=== PATIENT | female | born 1980 | race Caucasian/White ===

== ENCOUNTER 2019-03-17 15:49 | Inpatient (IN) | payer MEDICAID ==
[~2019-03-17] VITALS: Ht 170.2 cm; Wt 93.4 kg
[2019-03-17] MEDS: BLOOD GLUCOSE MONITORING 1 DEV DEV FS SCH ×5 (00:15→23:15)
--- NOTE | 2019-03-17 00:15 | NUR ---
2000 states bs high exceeds 600...retook 10 minutes later 600 exactly 2100 bs 534 2200 bs 473 8490 334 [id number] 310
--- NOTE | 2019-03-17 07:32 | NUR ---
PATIENT IN ROOM 5 GETTING SITUATED IN BED WITH MARTA WHO IS PLACING F/C PATIENT LETHARGIC BUT ALERT. AT BEDSIDE. PATIENT HAS WEDDING RING SILVER IN COLOR ON LEFT RING FINGER. TOOK RING HOME. ROOM AIR. PATIENT PLACED ON INSULIN DRIP BY DAY SHIFT. AT 10U/H. ON NS AT 200ML/HR. INFUSING IN RAC 18 AND HAS LEFT AC 22 LOCKED. LUNGS CLEAR. RESPIRATIONS MILD LABORED AND SYMMET. LUNG SOUNDS CLEAR. BS ACTIVE IN ALL 4 QUAD. F/C PRESENT AND URINE FLOWING. BRUISE ON LEFT KNEE. SKIN INTACT. STATES ON PERIOD X3 DAYS. PERRLA. ABLE TO MAKE NEEDS KNOWN ABLE TO OBEY COMMANDS
[2019-03-17 15:50] VITALS: BP 132/92
--- NOTE | 2019-03-17 16:07 | NUR ---
PT PLACED IN BED 9 BY EMS.
--- NOTE | 2019-03-17 16:10 | NUR ---
BIB EMS FROM HOME C/O SOB FROM HOME WITH N/V X2 DAYS AND ELEVATED BLOOD SUGAR. ACU CHECK [address] ARMSTRONG. HX DM
[2019-03-17] MEDS ORDERED: NACL 0.9% 1,000 ML IV SCH (16:27)
[2019-03-17] MEDS ORDERED: KETOROLAC 30 MG/ML VIAL IVP ONE (16:30)
[2019-03-17] MEDS ORDERED: ONDANSETRON 4 MG/2 ML VIAL IVP ONE (16:30)
--- NOTE | 2019-03-17 17:04 | NUR ---
Dr. Pimentel is evaluating the patient at bedside.
[2019-03-17] MEDS ORDERED: INSU100S5 SUBQ (17:14)
[2019-03-17] MEDS ORDERED: INSU100S45 SUBQ (17:14)
[2019-03-17 18:00] LABS: HEMATOCRIT 48.5 % (36-48); HEMOGLOBIN 14.4 g/dL (12.0-16.0); MEAN CORPUSCULAR HEMOGLOBIN 27 pg (27-31); MEAN CORPUSCULAR HGB CONC 30 g/dL (33-37); MEAN CORPUSCULAR VOLUME 89.5 fL (80-94); PLATELET COUNT (AUTO) 439 K/uL (140-450); RED BLOOD CELL COUNT(AUTO) 5.42 MIL/uL (4.20-5.40); RED CELL DISTRIBUTION WIDTH 16.3 % (11.6-13.7); WHITE BLOOD COUNT (AUTO) 24.2 K/uL (4.8-10.8)
[2019-03-17] MEDS ORDERED: HYDROcodone/APAP 7.5/325 MG 1 TAB PO PRN (18:10)
[2019-03-17] MEDS ORDERED: ACETAMINOPHEN 325 MG TAB PO PRN (18:10)
[2019-03-17] MEDS ORDERED: BLOOD GLUCOSE MONITORING 1 DEV DEV FS PRN (18:20)
[2019-03-17] MEDS ORDERED: DEXT 5% / NACL 0.45% 1,000 ML IV ONE (18:20)
[2019-03-17 18:25] LABS: ALBUMIN 4.5 g/dL (3.4-5.0); POTASSIUM 5.1 mmol/L (3.5-5.1); TOTAL BILIRUBIN 0.4 mg/dL (0.0-1.0)
[2019-03-17 18:30] LABS: ANION GAP 33.9 (8-16); CARBON DIOXIDE 5.2 mmol/L (21-32)
--- NOTE | 2019-03-17 18:45 | NUR ---
PT ARRIVED FROM ER IN [facility], PT AWAKE FOLLOWS COMMANDS, O X4, REPORT RECIEVED FROM RADIOLOGY TECHNOLOGIST, PT TRANSFERRED TO BED WITH FULL ASSIST, PLACED ON MONITOR, VITALS HR 124, BP 154/95, O2 SAT 100% RA, RR 30, TEMP 97.8 TA, RESP EVEN TACHYPNEA, SKIN WARM DRY COLOR WNL, CAP REFIL <3SEC, 20G PIV TO RAC SITE WNL, SKIN INTACT, BRUISING NOTED TO LEFT KNEE.
--- NOTE | 2019-03-17 18:46 | NUR ---
Patient will be admitted to care of Dr Sanchez. Admited to ICU 5. Belongings list completed. Report to HAN Crow
[2019-03-17 18:58] LABS: LYMPHOCYTES % (MANUAL) 9 % (20-46); METAMYELOCYTES % 1 % (0-0); MONOCYTES % (MANUAL) 1 % (5-12); PROMYELOCYTES % 1 % (0-0)
[2019-03-17] MEDS ORDERED: NACL 0.9% 1,000 ML IV ONE (19:00)
--- NOTE | 2019-03-17 19:00 | NUR ---
PT INCONTIENT OF URINE, PT CLEANED, CHANGED INTO GOWN, FINGER STICK GLUCOSE "HI" ON MACHINE, 2ND IV STARTED TO LEFT AC 18G, MRSA SWAB DONE, GRANADOS CATH 16F PLACED, INSULIN DRIP STARTED PER PROTOCOL AT 10UNITS/HR, WT 104KG, NS AT 200ML/HR.
--- NOTE | 2019-03-17 19:00 | NUR ---
LEISA AND MANUEL DAY NURSE AT BEDSIDE. PLACING GRANADOS CATHETER. CHANGE OF SHIFT REPORT STATES LEFT AC AND RIGHT AC PERIPH. LINES. RIGHT AC RUNNING INSULIN DRIP AT 10 UNITS/HR. PT RUNNING NS AT 200ML/HR VIA RIGHT AC. STATES LAST BS 651 IN ER. STATES LMP 3 DAYS AGO. FAMILY PRESENT. BRUISE ON LEFT KNEE. PICTURE TAKEN AND DOCUMENTED. SPEAKING WITH FAMILY AT BEDSIDE. WIELE AT BEDSIDE. STATES HR ELEVATION IS OK. BLOWING OFF EXCESS CO2. STATES OK TO PLACE CENTRAL LINE. BEGAN PREP FOR CENTRAL LINE. 1929 TALKING TO FAMILY AND PT OF CENTRAL LINE PLACEMENT 1931 1MG ATIVAN GIVEN BY C NURSE 1933 OXYGEN PLACED NC 2L 1935 ULTRASOUND PRESENT 1939 TIME OUT MARTHA FINNEGAN, [employer], STUDENT, CN AND PT NURSE 1944 DR VENTURA PRESENT 1945 LAB AT BEDSIDE TOLD TO COME BACK IN 30 MINUTES 1949 CENTRAL LINE PLACEMENT ENDED. WAITING ON XRAY 1953 WIMIGUEL SUTURING CENTRAL LINE 1999 MD STATES BLOOD DRAWS Q4H TO CHECK LEVELS STATES ONCE BS BELOW 200 TO CALL HIM, CHANGE INSULIN TO 5UNITS/HR AND CHANGE TO D5 HAKF NS AT RATE OF 150-200 DEPENDING ON BS CHECKS, BS CHECKS Q1H 2001 CN TOOK UA SAMPLE MRSA SAMPLE TAKEN 2001 XRAY AT BEDSIDE FOR PLACEMENT 2054 AT BEDSIDE TOOK WEDDING RING FROM LEFT RING FINGER. SILVER COLOR WITH CLEAR ROCKS ON IT. 2112 PER MD GEE PT NPO AT THIS TIME,HOLD COLACE, GIVE ROCEPHIN
--- NOTE | 2019-03-17 19:06 | NUR ---
DR JEFFERSON AT BEDSIDE.
--- NOTE | 2019-03-17 19:20 | NUR ---
REPORT GIVEN TO BRIM ROUNDER NURSE KONRAD. DR JEFFERSON SPEAKING TO FAMILY AT BEDSIDE.
[2019-03-17] MEDS ORDERED: INSULIN REGULAR, HUMAN 100 UNIT in NACL 0.9% 100 ML IV SCH ×2 (19:30)
[2019-03-17] MEDS ORDERED: LORazepam 2 MG/ML VIAL IVP SCH (19:30)
[2019-03-17 19:45] LABS: MAGNESIUM 2.4 mg/dL (1.8-2.4); PHOSPHORUS 4.7 mg/dL (2.5-4.9); THYROID STIMULATING HORMONE 0.33 uIU/mL (0.34-3.74)
[2019-03-17 19:46] LABS: PROTHROMBIN TIME 9.8 secs (10.8-13.4)
[2019-03-17 20:00] VITALS: BP 144/77
[2019-03-17 21:00] VITALS: BP 139/103
[2019-03-17] MEDS: DOCUSATE SODIUM 100 MG GELCAP PO SCH (21:00)
[2019-03-17] MEDS ORDERED: cefTRIAXone 1,000 MG VIAL ONE (21:21)
--- NOTE | 2019-03-17 21:28 | NUR ---
2127 GERARD AND DANIELLA WITH STUDENT AT BEDSIDE NOTIFIED OF ELEVATED WBC,PER WIELE UNKNOWN SOURCE OF INFECTION, DANIELLA STATES "SOFT BELLY" STATES HR AND BREATHING IS "SEVERE ACID IN BODY AND TRYING TO GET IT OUT" SPEAKING TO AND PT 'IF GETS WORSE, POSSIBLE VENTILATION" WILL CHECK BLOOD GASES GERARD STATES "NOTHING FOR TACHY, JUST FLUIDS"
--- NOTE | 2019-03-17 21:57 | NUR ---
SPOKE WITH DR BREWER AND GERARD REGARDING PTS HEART RATE; BOTH PHYSICIANS ARE AWARE THAT HR 130'4 TO 140'S.NO CHANGE IN ORDER. OK TO SET HEART RATE ALARM MONITOR TO 150.
[2019-03-17 22:00] VITALS: BP 154/87
[2019-03-17 22:06] LABS: POTASSIUM 4.4 mmol/L (3.5-5.1)
--- NOTE | 2019-03-17 22:10 | NUR ---
DR GEE AT BEDSIDE
--- NOTE | 2019-03-17 22:10 | NUR ---
FAMILY AT BEDSIDE
[2019-03-17 22:21] LABS: CARBON DIOXIDE 4.4 mmol/L (21-32)
[2019-03-17 22:55] LABS: BARBITURATE, URINE NEG. ng/ml (NEG <=200); BENZODIAZEPINE, URINE NEG. ng/mL (NEG <=200); CANNABINOID, URINE POS. ng/mL (NEG <=50); COCAINE, URINE NEG. ng/mL (NEG <=300); OPIATE, URINE NEG. ng/mL (NEG <=2000); PHENCYCLIDINE SCREEN,URINE NEG. ng/mL (NEG <=25)
[2019-03-17 23:00] VITALS: BP 147/84
[2019-03-17 23:11] LABS: APPEARANCE,URINE CLEAR (CLEAR); BILIRUBIN,URINE NEGATIVE (NEGATIVE); BLOOD, URINE 1+ (NEGATIVE); COLOR,URINE YELLOW (YELLOW); LEUKOCYTE ESTERASE ,URINE NEGATIVE (NEGATIVE); NITRITE, URINE NEGATIVE (NEGATIVE); PH,URINE 5.5 (5.0-9.0); UGLUCOSE 3+ (NEGATIVE)
[2019-03-17 23:50] LABS: RBC,URINE 0-5 /HPF (0-5)
[2019-03-17 23:51] LABS: WBC,URINE 0-5 /HPF (0-5)
[2019-03-18] VITALS (14 sets, daily range): BP systolic 91–146; BP diastolic 49–99
--- NOTE | 2019-03-18 | NUR ---
PATIENT CLEAR YELLOW URINE IN TUBING. 1000 UNITS. F/C
[2019-03-18] MEDS: BLOOD GLUCOSE MONITORING 1 DEV DEV FS SCH ×24 (00:20→23:34)
--- NOTE | 2019-03-18 00:28 | NUR ---
rt at bedside took abg at bedside. pt tolerated well. no sob no distress noted states "ok" at bedside
[2019-03-18 00:31] LABS: CREATININE 0.9 mg/dL (0.6-1.3)
--- NOTE | 2019-03-18 01:15 | NUR ---
1000 URINE OUTPUT. CLEAR YELLOW. PT STATES SHE FEELS CATHETER IS OUT OF PLACE, CHECKED AND URINE FLOWING IN TUBING INTO BAG. NO LEAKING WILL CONTINUE TO MONITOR. MILD BLOOD DRIED ON LEG D/T PT BEING ON PERIOD X4 DAYS. CLEANED. WILL CONTINUE TO MONITOR.
--- NOTE | 2019-03-18 01:29 | NUR ---
LABS PENDING. BS 231 CALLED GERARD NO ANSWER
--- NOTE | 2019-03-18 02:25 | NUR ---
NOTIFIED WIELE OF CHANGE TO D5 HALF NS AND DECREASE TO 5 UNITS/HR OF INSULIN DRIP CO SIGNED WITH C NURSE. PT TOLERATING WELL.
[2019-03-18] MEDS ORDERED: LORazepam 2 MG/ML VIAL IVP PRN (02:45)
[2019-03-18] MEDS: ONDANSETRON 4 MG/2 ML VIAL IVP PRN ×3 (02:51→15:43)
[2019-03-18 03:06] LABS: ANION GAP 29.9 (8-16); CARBON DIOXIDE 4.1 mmol/L (21-32)
[2019-03-18] MEDS: DEXT 5% / NACL 0.45% 1,000 ML IV SCH ×5 (03:26→23:00)
[2019-03-18] MEDS ORDERED: MAG SULF 2000 MG/WATER PREMIX 50 ML IV ONE (04:00)
[2019-03-18 05:04] LABS: ANION GAP 24.5 (8-16); CREATININE 0.8 mg/dL (0.6-1.3); POTASSIUM 3.9 mmol/L (3.5-5.1)
--- NOTE | 2019-03-18 05:45 | NUR ---
550 URINE OUTPUT YELLOW CLEAR IN F/C
[2019-03-18 05:59] LABS: CARBON DIOXIDE 7.4 mmol/L (21-32)
--- NOTE | 2019-03-18 06:43 | NUR ---
DR UP AT BEDSIDE SPEAKING WITH AND PT
--- NOTE | 2019-03-18 07:15 | NUR ---
PATIENT STABLE. ENDORSED TO DAY SHIFT OF Q1H. NO SOB NOTED. NO DISTRESS NOTED. PT LYING IN BED SLEEPING. ENDORSED TO DAY SHIFT THAT TOOK WEDDING RING
--- NOTE | 2019-03-18 07:16 | NUR ---
RECEIVED BEDSIDE REPORT FROM TRAUMA MANAGER NURSE, PT IS AAOX4, ABLE TO FOLLOW COMMANDS AND MAKE NEEDS KNOWN, DENIES PAIN, NO S/S OF DISTRESS, CLEAR LUNG SOUNDS GONZALO. ON RA, O2 SAT 100%, ST ON BENCH ASSEMBLER OPERATOR, CAP REFILL <2 SEC, SOFT ABDOMEN WITH ACTIVE BOWEL SOUNDS, NPO EXCEPT MEDS AT THIS TIME, GRANADOS CATHETER IN PLACE WITH CLEAR YELLOW URINE VIA GRAVITY, ABLE TO MOVE ALL EXTREMITIES, GENERALIZED WEAKNESS NOTED, SKIN IS WARM AND DRY TO TOUCH, NO OPEN WOUNDS, CENTRAL LINE TO RIJ, PATENT, RUNNING D5 1/2 NS AT 150 ML/HR, INSULIN AT 5 UNITS/HR, IV TO LAC, 18 GA, AND RAC 22GA, PATENT AND SL. HOB ELEVATED TO 30 DEGREES, SAFETY MEASURES IN PLACE, POSITION CHANGED FOR OFF LOAD PRESSURE, WILL CONTINUE TO MONITOR.
--- NOTE | 2019-03-18 08:31 | NUR ---
PATIENT HAS BEEN SCREENED AND CATEGORIZED HIGH NUTRITION RISK. PATIENT WILL BE SEEN WITHIN 1-2 DAYS OF ADMISSION. 03/18/19-03/19/[address]
[2019-03-18] MEDS: NACL 0.9% 1,000 ML IV SCH ×4 (08:45→23:39)
[2019-03-18] MEDS: FOLIC ACID 1 MG TAB PO SCH (09:08)
[2019-03-18] MEDS: DOCUSATE SODIUM 100 MG GELCAP PO SCH ×2 (09:08→21:00)
[2019-03-18] MEDS: FAMOTIDINE 20 MG TAB PO SCH (09:09)
[2019-03-18] MEDS: MULTIVITAMIN 1 TAB PO SCH (09:09)
[2019-03-18] MEDS: THIAMINE 100 MG TAB PO SCH (09:09)
--- NOTE | 2019-03-18 09:15 | NUR ---
SCHEDULED MEDICATION GIVEN, PATIENT IS ABLE TO SWALLOW PILLS ONE OF A TIME AND TOLERATED WELL. MEDICATION INDICATION AND SIDE EFFECTS EXPLAINED TO PATIENT, PATIENT VERBALIZED UNDERSTANDING.
[2019-03-18 09:32] LABS: BASOPHILS # (AUTO) 0.1 K/uL (0.00-0.22); BASOPHILS % (AUTO) 0.4 % (0.0-2.0); HEMATOCRIT 42.8 % (36-48); HEMOGLOBIN 13.8 g/dL (12.0-16.0); LYMPHOCYTES # (AUTO) 0.6 K/uL (2.5-16.5); LYMPHOCYTES % (AUTO) 3.7 % (20.5-51.1); MEAN CORPUSCULAR HEMOGLOBIN 27 pg (27-31); MEAN CORPUSCULAR HGB CONC 32 g/dL (33-37); MEAN CORPUSCULAR VOLUME 82.9 fL (80-94); MONOCYTES # (AUTO) 0.9 K/uL (0.8-1.0); MONOCYTES % (AUTO) 5.7 % (1.7-9.3); NEUTROPHILS # (AUTO) 14.3 K/uL (1.8-7.7); NEUTROPHILS % (AUTO) 90.2 % (42.2-75.2); PLATELET COUNT (AUTO) 303 K/uL (140-450); RED BLOOD CELL COUNT(AUTO) 5.17 MIL/uL (4.20-5.40); RED CELL DISTRIBUTION WIDTH 14.8 % (11.6-13.7); WHITE BLOOD COUNT (AUTO) 15.8 K/uL (4.8-10.8)
[2019-03-18 09:35] LABS: CARBON DIOXIDE 9.2 mmol/L (21-32); CREATININE 0.8 mg/dL (0.6-1.3); POTASSIUM 3.2 mmol/L (3.5-5.1)
--- NOTE | 2019-03-18 10:00 | NUR ---
PATIENT IS RESTING IN BED, NO S/S OF DISTRESS, VSS, DENIES PAIN, STATED THIRSTY, ICE CHIPS OFFERED, PATIENT'S AT BEDSIDE.
[2019-03-18] MEDS ORDERED: PROBIOTIC SCREEN 1 EA MISC MC PRN (11:15)
--- NOTE | 2019-03-18 11:25 | NUR ---
PATIENT C/O NAUSEA, ZOFRAN GIVEN ORDERED, WILL CONTINUE TO MONITOR.
--- NOTE | 2019-03-18 11:45 | NUR ---
PATIENT IS OUT OF UNIT VIA RWEISER FOR CT SCAN WITH RN AND ROLL INSPECTOR.
--- NOTE | 2019-03-18 12:08 | NUR ---
PATIENT IS BACK TO ICU, NO INCIDENT OCCUR, PUT BACK ON MONITOR. VSS, DENIES PAIN, NO S/S OF DISTRESS, POSITION FOR COMFORT.
--- NOTE | 2019-03-18 12:39 | NUR ---
1200 VBG DRAWN BY HAN BLUM FROM CENTRAL LINE AND RESULTS GIVEN TO DR. GEE
[2019-03-18 12:57] LABS: ANION GAP 20.3 (8-16); CARBON DIOXIDE 11.6 mmol/L (21-32); CREATININE 0.7 mg/dL (0.6-1.3)
[2019-03-18 13:07] LABS: POTASSIUM 2.9 mmol/L (3.5-5.1)
--- NOTE | 2019-03-18 14:00 | NUR ---
PATIENT IS RESTING IN BED, NO S/S OF DISTRESS, VSS, DENIES PAIN, SELF REPOSITION
[2019-03-18] MEDS ORDERED: KCL 20 MEQ/WATER INJ PREMIX 200 ML IV ONE (15:00)
[2019-03-18] MEDS ORDERED: KCL 20 MEQ/WATER INJ PREMIX 200 ML IV SCH (15:30)
--- NOTE | 2019-03-18 16:00 | NUR ---
NO CHANGE OF CONDITION, CONTINUE MONITOR INSULIN DRIP, PATIENT IS RESTING IN BED, NO S/S OF DISTRESS, VSS, DENIES PAIN, STATED SHE FEELS HOT, PM CARE AND F/C CARE PROVIDED, POSITION CHANGED FOR COMFORT.
--- NOTE | 2019-03-18 16:07 | NUR ---
03/18/19 RD INITIAL ASSESSMENT COMPLETED PLEASE REFER TO NUTRITION ASSESSMENT UNDER CARE ACTIVITY FOR ESTIMATED NUTRITIONAL NEEDS. 1. CONTINUE NPO EXCEPT MEDS 2. WHEN MEDICALLY APPROPRIATE, RECOMMEND CCHO 60GM AND LOW-FAT DIET 3. NUTRITION EDUCATION WAS PROVIDED ON DM T1 DIET AND PTS ACCEPTED 4. RD TO FOLLOW-UP 2-3 DAYS, HIGH RISK EFE TOTH RD
[2019-03-18 16:10] LABS: ANION GAP 19.3 (8-16); CARBON DIOXIDE 11.7 mmol/L (21-32); CREATININE 0.6 mg/dL (0.6-1.3)
--- NOTE | 2019-03-18 19:06 | NUR ---
RECEIVED PT FROM AM SHIFT. PT AOX4. ABLE TO VERBALIZE NEEDS. AFEBRILE. ON INSULIN DRIP 5 UNITS. D51/2 NS @ 200 ML/HR. REPOSITIONS SELF. SR ON MONITOR. ROOM AIR. EVEN UNLABORED BREATHING. NPO EXCEPT MEDS AT THIS TIME. F/C IN PLACE. URINE CLEAR YELLOW NO FOUL ODOR. SKIN INTACT. IV SITE RAC 18G AND LAC 20G AND RIJ CENTRAL LINE. IV SITE PATENT INTACT. BED IN LOWEST POSITION. SR UP X4. CALL LIGHT WITHIN REACH. WILL CONTINUE TO MONITOR.
--- NOTE | 2019-03-18 19:11 | NUR ---
RECEIVED PT FROM AM SHIFT. PT CONFUSED. BILATERAL SOFT WRIST RESTRAINTS NOTED. THRASHES HEAD CONTINUOUSLY. UNABLE TO FOLLOW COMMANDS. ST ON MONITOR. ON OXIMIZER 4L. NPO AT THIS TIME. NGT TO RIGHT NARE NOTED. ON GLUCERNA 1.2 @ 80 ML/HR. F/C IN PLACE. URINE CLEAR, NO SEDIMENT OR FOUL ODOR NOTED. SKIN INTACT. ABLE TO REPOSITION SELF. IV SITE R HAND 20 G AND R WRIST 22 G. ON 1 NS @ 70 ML/HR. BED IN LOWEST POSITION SR UP X4. WILL CONTINUE TO OBSERVE. Addendum: 03/19/19 at 0107 by Vamsi Pritchett RN WRONG PATIENT
--- NOTE | 2019-03-18 19:15 | NUR ---
REPORT GIVEN TO MANAGED CARE COORDINATOR NURSE AT BEDSIDE FOR CONTINUE OF CARE.
--- NOTE | 2019-03-18 19:45 | NUR ---
ADMINISTERED MORPHINE 2MG AT THIS TIME.
[2019-03-18 20:38] LABS: ANION GAP 19.5 (8-16); CARBON DIOXIDE 11.7 mmol/L (21-32); CREATININE 0.6 mg/dL (0.6-1.3); POTASSIUM 3.2 mmol/L (3.5-5.1)
[2019-03-18] MEDS: KCL 20 MEQ/WATER INJ PREMIX 200 ML IV SCH ×2 (21:11→23:38)
--- NOTE | 2019-03-18 21:14 | NUR ---
1 LARGE BM NOTED AT THIS TIME. REPOSITIONED TO OFFLOAD PRESSURE AREAS
--- NOTE | 2019-03-18 22:00 | NUR ---
FAMILY AT BEDSIDE AT THIS TIME.
[2019-03-19] VITALS (12 sets, daily range): BP systolic 98–125; BP diastolic 41–84
[2019-03-19] MEDS: BLOOD GLUCOSE MONITORING 1 DEV DEV FS SCH ×24 (00:36→23:30)
[2019-03-19 00:41] LABS: ANION GAP 17.9 (8-16); CARBON DIOXIDE 13.2 mmol/L (21-32); CREATININE 0.6 mg/dL (0.6-1.3); POTASSIUM 3.1 mmol/L (3.5-5.1)
--- NOTE | 2019-03-19 01:00 | NUR ---
K 3.1 WILL ADMINISTER KCL 40 MEQ AND KDUR 40 MEQ. MAG 1.5 WILL ADMINISTER MGSO4 2G
[2019-03-19] MEDS ORDERED: MAG SULF 2000 MG/WATER PREMIX 50 ML IV ONE ×2 (02:00→17:35)
[2019-03-19] MEDS ORDERED: POTASSIUM CHLORIDE 10 MEQ TABER PO SCH (02:00)
[2019-03-19] MEDS ORDERED: KCL 20 MEQ/WATER INJ PREMIX 200 ML IV ONE ×2 (02:00→17:30)
[2019-03-19] MEDS: DEXT 5% / NACL 0.45% 1,000 ML IV SCH ×4 (04:00→19:27)
[2019-03-19] MEDS: NACL 0.9% 1,000 ML IV SCH ×4 (04:39→20:50)
[2019-03-19] MEDS: ONDANSETRON 4 MG/2 ML VIAL IVP PRN ×3 (04:46→20:29)
[2019-03-19 05:09] LABS: ANION GAP 15.8 (8-16); CARBON DIOXIDE 14.7 mmol/L (21-32); CREATININE 0.6 mg/dL (0.6-1.3); POTASSIUM 3.5 mmol/L (3.5-5.1)
[2019-03-19 05:29] LABS: MAGNESIUM 2.3 mg/dL (1.8-2.4)
[2019-03-19 05:30] LABS: PHOSPHORUS 0.9 mg/dL (2.5-4.9)
--- NOTE | 2019-03-19 06:33 | NUR ---
DR. UP AT BEDSIDE AT THIS TIME. UPDATED ON PTS CURRENT CONDITION. WILL CONTINUE TO FOLLOW UP ANY ADDITIONAL ORDERS.
[2019-03-19 06:48] LABS: BASOPHILS # (AUTO) 0.1 K/uL (0.00-0.22); BASOPHILS % (AUTO) 0.5 % (0.0-2.0); HEMATOCRIT 36.8 % (36-48); HEMOGLOBIN 11.8 g/dL (12.0-16.0); LYMPHOCYTES # (AUTO) 0.8 K/uL (2.5-16.5); LYMPHOCYTES % (AUTO) 7.1 % (20.5-51.1); MEAN CORPUSCULAR HEMOGLOBIN 26 pg (27-31); MEAN CORPUSCULAR HGB CONC 32 g/dL (33-37); MEAN CORPUSCULAR VOLUME 81.9 fL (80-94); MONOCYTES # (AUTO) 1.3 K/uL (0.8-1.0); MONOCYTES % (AUTO) 11.3 % (1.7-9.3); NEUTROPHILS # (AUTO) 9.1 K/uL (1.8-7.7); NEUTROPHILS % (AUTO) 81.1 % (42.2-75.2); PLATELET COUNT (AUTO) 254 K/uL (140-450); RED BLOOD CELL COUNT(AUTO) 4.49 MIL/uL (4.20-5.40); RED CELL DISTRIBUTION WIDTH 15.8 % (11.6-13.7); WHITE BLOOD COUNT (AUTO) 11.2 K/uL (4.8-10.8)
--- NOTE | 2019-03-19 07:17 | NUR ---
ENDORSED CARE TO INCOMING SHIFT RN FOR CONTINUITY OF CARE.
--- NOTE | 2019-03-19 07:20 | NUR ---
BEDSIDE REPORT RECEIVED FROM SHAVING MACHINE OPERATOR NURSE, PT RESTING QUIETLY WITH EYES OPEN, SPEAKS CLEARLY, OX4, RESP EVEN UNLABORED, SKIN WARM DRY COLOR WNL, NSR ON MONITOR, VITALS STABLE, INSULIN DRIP INFUSING AT 10UNITS PER HR, R IJ CENTRAL LINE, SITE WNL, GRANADOS DRAINING TO GRAVITY LIGHT YELLOW. POC REVIEWED, ALL SAFETY MEASURES IN PLACE, WILL CONTINUE TO MONITOR.
--- NOTE | 2019-03-19 08:14 | NUR ---
DR BHATTI AND MEDICAL TEAM AT BEDSIDE FOR EVAL
[2019-03-19] MEDS ORDERED: POTASSIUM PHOSPHATE 15 MM in NACL 0.9% 250 ML IV SCH (08:30)
[2019-03-19] MEDS: FOLIC ACID 1 MG TAB PO SCH (09:00)
[2019-03-19] MEDS: LACTOBACILLUS RHAMNOSUS GG 1 EACH CAP PO SCH (09:00)
[2019-03-19] MEDS: DOCUSATE SODIUM 100 MG GELCAP PO SCH ×2 (09:01→20:28)
[2019-03-19] MEDS: THIAMINE 100 MG TAB PO SCH (09:01)
[2019-03-19] MEDS: FAMOTIDINE 20 MG TAB PO SCH (09:01)
[2019-03-19] MEDS: MULTIVITAMIN 1 TAB PO SCH (09:01)
[2019-03-19 09:51] LABS: CARBON DIOXIDE 15.2 mmol/L (21-32); CREATININE 0.6 mg/dL (0.6-1.3); POTASSIUM 3.2 mmol/L (3.5-5.1)
[2019-03-19] MEDS: METOCLOPRAMIDE 10 MG/2 ML INJ VIAL IVP PRN (10:30)
--- NOTE | 2019-03-19 10:30 | NUR ---
PT C/O NAUSEA, REGLAN GIVEN AT THIS TIME.
--- NOTE | 2019-03-19 11:20 | NUR ---
PT STATES HER NAUSEA HAS SUBSIDED, RESTING QUIETLY IN NO ACUTE DISTRESS, AT BEDSIDE.
[2019-03-19 13:15] LABS: ANION GAP 21.2 (8-16); CREATININE 0.5 mg/dL (0.6-1.3); POTASSIUM 3.2 mmol/L (3.5-5.1)
--- NOTE | 2019-03-19 13:50 | NUR ---
PT C/O BURT 10/19, TYLENOL GIVEN, DOV PO WELL.
--- NOTE | 2019-03-19 14:42 | NUR ---
DR THORNTON CALLED TO CLARIFY INSULIN DRIP ORDER, INFORMED OF ANION GAP 21, BLOOD SUGAR 231, PER DR THORNTON, INSULIN DRIP INCREASED TO 0.1U/KG/HR. CHANGED TO 10U/HR
--- NOTE | 2019-03-19 14:45 | NUR ---
DISCHARGE PLANNING: CONTACTED OLAMIDE NATH OF [facility] AT [phone], NO ANSWER. LEFT MESSAGE. Addendum: 03/19/19 at 1608 by Jaycee Flannery ABLE TO SPEAK TO OLAMIDE NATH OF [facility], SHE STATED IF PATIENT IS STABLE FOR TRANSFER, PATIENT NEEDS TO TRANSFER TO A CONTRACTED FACILITY. PROVIDED HER OF THE RESIDENTS CALL PHONE FOR PEER TO PEER. DR. UP MADE AWARE, HE STATED PATIENT IS STABLE FOR TRANSFER AND TO EXPECT A CALL FROM DR. AUSTIN. Addendum: 03/19/19 at 1646 by Jaycee Flannery CM RECEIVED AN ORDER STABLE TO BE TRANSFERRED TO A CONTRACTED FACILITY. ORDER, CLINICALS AND POST STABILIZATION FORM FAXED TO [facility] AT [phone]. MAINTENANCE ASSOCIATE'S CONTACT INFO PROVIDED TO OLAMIDE NATH. Addendum: 03/19/19 at 1650 by Jaycee Flannery CM MAINTENANCE ASSOCIATE MADE AWARE. Addendum: 03/20/19 at 0912 by Jaycee Flannery CM CONTACTED OLAMIDE NATH OF [facility] TO FOLLOW UP TRANSFER TO A CONTRACTED FACILITY. NO ANSWER. LEFT MESSAGE. Addendum: 03/20/19 at 1127 by Jaycee Flannery CM PER PRIMARY RN MANUEL, PATIENT'S SPOKE TO MAZIN FROM [facility] AND IS REQUESTING FOR THE PATIENT TO STAY IN OUR HOSPITAL. MET WITH THE PATIENT'S SILVINO AT THE BEDSIDE, HE CONFIRMED THAT HE SPOKE TO MAZIN FROM [facility]. HE PROVIDED ME WITH THE NUMBER TO CALL. CONTACTED [facility] AT [phone], ABLE TO SPEAK TO OLAMIDE RETANA COVERING FOR OLAMIDE NATH TODAY. SHE STATED SHE DID NOT SPEAK TO ANYBODY TODAY REGARDING THE PATIENT. SHE ALSO INQUIRED IF THE PATIENT IS STABLE FOR TRANSFER. I INFORMED HER THAT I FAXED THE CLINICALS AND POST STABILIZATION FORM THIS MORNING. SHE SAID SHE WILL GATHER MORE INFORMATION FROM THEIR HEEL SEAT FITTER MACHINE. AND WILL UPDATE ONCE SHE GETS MORE INFO. PROVIDED HER WITH MY CONTACT INFO. Addendum: 03/20/19 at 1358 by Jaycee Flannery 1120: RECEIVED A CALL FROM ICU FOR PATIENT'S WANTED TO SPEAK TO ME. MET WITH HIM AT THE BEDSIDE. HE WAS ON SPEAKER PHONE WITH [facility]. HANNAH PATIENT COORDINATOR REQUESTED TO SPEAK TO ME. I ASKED FOR HER PHONE NUMBER [phone], SO I CAN CALL HER BACK. SHE STATED THAT PATIENT CAN STAY FOR 1 MORE DAY BUT IF THE PATIENT WILL NOT BE DC TOMORROW, PATIENT NEED TO TRANSFER TO A CONTRACTED FACILITY. 1147: RECEIVED A CALL FROM OLAMIDE RETANA AT [facility], STATING THAT DR. LR AT [facility] ACCEPTED THE PATIENT AND IN THE PROCESS OF GETTING A ROOM AND WILL CALL ME BACK FOR THE ROOM NUMBER. CONTACTED OLAMIDE RETANA TO INFORM HER THAT I SPOKE TO HANNAH AND SHE STATED THAT OK FOR THE PATIENT TO STAY 1 MORE DAY. OLAMIDE RETANA CONFIRMED THAT SHE GOT THE EMAIL REGARDING CANCELLATION OF TRANSFER. Addendum: 03/20/19 at 1359 by Jaycee Flannery CM PER HANNAH PATIENT COORDINATOR AT [facility], TODAY'S STAY IS APPROVED AND MAY USE THE SAME AUTH. Addendum: 03/20/19 at 1401 by Jaycee Flannery CM PRIMARY HAN JACKSON AND SALO CARABALLO MADE AWARE. DR. VENTURA MADE AWARE WELL. Addendum: 03/20/19 at 1556 by Jaycee Flannery CM 38 YEAR OLD FEMALE PATIENT FROM HOME, WHO CAME IN ALTERED LEVEL OF CONSCIOUSNESS. PAST MEDICAL HISTORY INCLUDE DIABETES, MEDICAL NON COMPLIANCE AND ALCOHOL ABUSE. INITIAL DIAGNOSIS OF DKA. CURRENT LABS INCLUDE WBC 6.9, H/H 10.5/32.3, NA/K 142/3.5, BUN/CREA 8/0.5, ANION GAP 16.4. UDS SHOWED +CANNABINOIDS. PULNY CONSULT WITH DR. BREWER FOR DKA. PT IN PLACE. DC PLAN TO HOME ONCE STABLE FOR DC. Addendum: 03/21/19 at 1119 by Jaycee Flannery CM PER DR. VENTURA, PATIENT WILL BE DISCHARGING TODAY. CONTACTED OLAMIDE NATH OF [facility] AT [phone], NO ANSWER. LEFT MESSAGE. Addendum: 03/21/19 at 1557 by Rajwinder Franz CM DC PLANNING SPOKE WITH DR UP REGARDING THE DC PLAN , PER DR UP PT IS NOT STABLE TO GO HOME, HER BLOOD SUGAR IS UNCONTROLLED, CALLED PHAM AT [facility] [phone] NOTIFIED HER PT NEEDS TO BE TO TRANSFERRED TO THE CONTRACTED FACILITY POST STABILIZATION FORM FAXED TO [phone] . PER PHAM SHE WILL TELL TO THE SPRAY DRIER OPERATOR HELPER FOR PEER TO PEER. PROVIDED THE RESIDENT PHONE # [phone].
--- NOTE | 2019-03-19 15:17 | NUR ---
PER DR UP, KEEP IVF ON NS AT 200ML, DO NOT SWITCH BACK AND FORTH PER DR UP.
--- NOTE | 2019-03-19 15:30 | NUR ---
PT C/O BURT AGAIN NOW 12/19, NORCO GIVEN PER PT REQUEST, PT DENIES ANY OTHER NEEDS, CALL VELEZ WITHIN REACH, ALL SAFETY MEASURES IN PLACE, WILL CONTINUE TO MONITOR
--- NOTE | 2019-03-19 16:05 | NUR ---
PT SLEEPING WITH EYES CLOSED, AROUSES EASILY, STATES BURT IS GONE NOW.
[2019-03-19 16:51] LABS: ANION GAP 14.2 (8-16); CARBON DIOXIDE 17.8 mmol/L (21-32); CREATININE 0.6 mg/dL (0.6-1.3)
--- NOTE | 2019-03-19 16:58 | NUR ---
PT VOMITING X1, ZOFRAN GIVEN PER PRN ORDER.
--- NOTE | 2019-03-19 17:10 | NUR ---
PT SITTING UP TALKING WITH VISITORS, STATES NAUSEA HAS SUBSIDED, VITALS STABLE APPEARS IN NO ACUTE DISTRESS.
[2019-03-19] MEDS ORDERED: POTASSIUM PHOSPHATE 15 MM in NACL 0.9% 250 ML IV ONE (17:30)
[2019-03-19] MEDS ORDERED: KETOROLAC 15 MG/ML VIAL ONE (18:25)
[2019-03-19] MEDS ORDERED: KETOROLAC 15 MG/ML VIAL IM SCH (18:26)
--- NOTE | 2019-03-19 18:36 | NUR ---
PT C/O BURT AGAIN, DR VENTURA NOTIFIED, ORDER FOR TORADOL RECEIVED, DR VENTURA NOTIFIED OF K 3.0, MAG 1.6.
--- NOTE | 2019-03-19 19:29 | NUR ---
BEDSIDE REPORT GIVEN TO REDRYING MACHINE OPERATOR NURSE MERRILL HERNANDEZ IN STABLE CONDITION.
--- NOTE | 2019-03-19 19:35 | NUR ---
REPORT GIVEN BY MANUEL SHORT, PT IS ALERT ORIENTED X4. NO S/S OF RESP DISTRESS, NO SOB. HOB UP 30-45 DEGREES. PT ON ROOM AIR. ON CARDIAC MONITORING WITH SR ON MONITOR. RIJ TRIPLE LUMENS INTACT WELL, IV PERIPHERAL TO RAC 20 AND LEFT HAND NO 18 NO S/S OF IN FILTRATES ON THE LINES. CONTINUE ON INSULINS DRIPS AT 5 UNITS/HR. CONTINUE AND IV NS AND D5IN 1/2 NS GIVEN ONE AT THE TIME AT 200 CC/HR FOLLOWS BLOOD SUGAR RESULTS. CONTINUE ON BLOOD SUGAR CHECK Q HOURS UNTIL ANION GAP X2 NORMAL RANGE. PER REPORT ANION GAP AT 1600 IS NORMAL. KCL ON GOING ANG MAG 2 GR ORDER.SKIN WARM TO TOUCH. ABD SOFT NON DISTENDED. F/C IN PLACE WITH YELLOW CLEAR URINE. PT NPO EXCEPT MEDS. GENTLE CARE GIVEN. KEPT CLEAN AND DRY.
--- NOTE | 2019-03-19 21:20 | NUR ---
BLOOD SUGAR AT 223 CONTINUE ON [address] GEE AT BED SIDE AND TALK TO . PT WAS C/O NAUSEA AND ZOFRAN IVP GIVEN ORDER.
--- NOTE | 2019-03-19 22:00 | NUR ---
BMP DRAWN WAITING FOR RESULT
[2019-03-19 22:26] LABS: ANION GAP 11.8 (8-16); CARBON DIOXIDE 20.3 mmol/L (21-32); CREATININE 0.5 mg/dL (0.6-1.3); POTASSIUM 3.1 mmol/L (3.5-5.1)
[2019-03-20] VITALS (8 sets, daily range): BP systolic 98–135; BP diastolic 35–86
[2019-03-20] MEDS ORDERED: DEXTROSE 50% 50 ML SYR IVP PRN (00:25)
[2019-03-20] MEDS ORDERED: KCL 20 MEQ/WATER INJ PREMIX 200 ML IV SCH ×2 (00:30→22:30)
--- NOTE | 2019-03-20 00:30 | NUR ---
ANION GAP WAS 12.7 AND POTASSIUM 3.1 ,KCL 20 MEQ ORDERED BY . AWARE PER MD TO D/C D5 IN 1/2 NS AT 200 CC HR CHANGE IVF TO NS AT 100 CC/HR, 2 X MORE BLOOD SUGAR CHECK AFTER THAT D/C HOURLY BLOOD SUGAR CHECK CHANGE TO ACHS, REDRAW BLOOD AND REPEAT NEXT TO AM NO 4 AM.ALSO VENOUS BLOOD GAS DO TO IN AM ONLY THEN D/C ALL VENOUS BLOOD GAS TEST AT THIS TIME.PT CAN HAVE CCHO DIET. RT AND LABS MADE AWARE. PT C/O NAUSEA AND ZOFRAN GIVEN ORDER. Addendum: 03/20/19 at 0316 by Renetta Randolph RN D/C THE INSULIN DRIP
[2019-03-20] MEDS: ONDANSETRON 4 MG/2 ML VIAL IVP PRN ×5 (00:37→21:41)
[2019-03-20] MEDS: BLOOD GLUCOSE MONITORING 1 DEV DEV FS SCH ×7 (00:41→20:12)
[2019-03-20 00:44] LABS: ANION GAP 12.7 (8-16); CARBON DIOXIDE 19.4 mmol/L (21-32); CREATININE 0.6 mg/dL (0.6-1.3); POTASSIUM 3.1 mmol/L (3.5-5.1)
[2019-03-20] MEDS: NACL 0.9% 1,000 ML IV SCH ×2 (01:01→11:10)
[2019-03-20] MEDS: METOCLOPRAMIDE 10 MG/2 ML INJ VIAL IVP PRN (02:43)
[2019-03-20] MEDS: INSULIN LISPRO SLIDING SCALE 100 UNITS/ML VIAL SUBQ PRN ×5 (02:43→20:14)
--- NOTE | 2019-03-20 02:45 | NUR ---
BLOOD SUGAR 225 AND 4 UNITS INSULIN GIVEN ORDER TO FOLLOW SLIDING SCARE.REGLAN PRN GIVEN ORDER FOR N/
--- NOTE | 2019-03-20 05:00 | NUR ---
SLEEP WELL,NO S/S PAIN
--- NOTE | 2019-03-20 06:00 | NUR ---
COME AND UP DATE TO THE PT CONDITION
[2019-03-20 06:12] LABS: BASOPHILS % (AUTO) 0.7 % (0.0-2.0); EOSINOPHILS % (AUTO) 0.2 % (0.0-4.0); HEMATOCRIT 32.3 % (36-48); HEMOGLOBIN 10.5 g/dL (12.0-16.0); LYMPHOCYTES # (AUTO) 1.2 K/uL (2.5-16.5); LYMPHOCYTES % (AUTO) 17.6 % (20.5-51.1); MEAN CORPUSCULAR HEMOGLOBIN 27 pg (27-31); MEAN CORPUSCULAR HGB CONC 33 g/dL (33-37); MEAN CORPUSCULAR VOLUME 82.1 fL (80-94); MONOCYTES # (AUTO) 0.7 K/uL (0.8-1.0); MONOCYTES % (AUTO) 9.5 % (1.7-9.3); PLATELET COUNT (AUTO) 218 K/uL (140-450); RED BLOOD CELL COUNT(AUTO) 3.94 MIL/uL (4.20-5.40); RED CELL DISTRIBUTION WIDTH 15.9 % (11.6-13.7); WHITE BLOOD COUNT (AUTO) 6.9 K/uL (4.8-10.8)
[2019-03-20 07:00] LABS: ANION GAP 16.4 (8-16); CREATININE 0.5 mg/dL (0.6-1.3); POTASSIUM 3.5 mmol/L (3.5-5.1)
--- NOTE | 2019-03-20 07:09 | NUR ---
REPORT GIVEN TO MANUEL RN MADE AWARE THE PLAN TO TRANSFER PT TO TELE. PT IS SLEEPING AT THIS TIME.
[2019-03-20 07:15] LABS: MAGNESIUM 1.9 mg/dL (1.8-2.4); PHOSPHORUS 1.8 mg/dL (2.5-4.9)
--- NOTE | 2019-03-20 07:15 | NUR ---
BEDSIDE REPORT RECEIVED FROM SMASH HAND NURSE MARY, PT AWAKE ALERT OX4, RESP EVEN UNLABORED ON RA, BS CLEAR TO AUSC, VITALS STABLE, NSR ON MONITOR, SKIN WARM DRY COLOR WNL, MOVES ALL EXT, ABD SOFT NON DISTENDED, BS+ALL 4Q, GRANADOS DRAINING CLEAR YELLOW URINE, NS INFUSING AT 100ML/HR TO RIJ CENTRAL LINE, SITE WNL, POC REVIEWED, ALL SAFETY MEASURES IN PLACE, WILL CONTINUE TO MONITOR.
[2019-03-20 07:23] LABS: CARBON DIOXIDE 16.2 mmol/L (21-32)
--- NOTE | 2019-03-20 07:40 | NUR ---
PT C/O NAUSEA, PRN ZOFRAN GIVEN AT THIS TIME, BREAKFAST TRAY HERE.
--- NOTE | 2019-03-20 08:00 | NUR ---
DR BHATTI AND MEDICAL TEAM AT BEDSIDE, PLAN TO TRANSFER TO A CONTRACTED FACILITY.
[2019-03-20] MEDS: FAMOTIDINE 20 MG TAB PO SCH (08:39)
[2019-03-20] MEDS: FOLIC ACID 1 MG TAB PO SCH (08:39)
[2019-03-20] MEDS: THIAMINE 100 MG TAB PO SCH (08:39)
[2019-03-20] MEDS: MULTIVITAMIN 1 TAB PO SCH (08:39)
[2019-03-20] MEDS: DOCUSATE SODIUM 100 MG GELCAP PO SCH ×2 (08:40→20:11)
[2019-03-20] MEDS: LACTOBACILLUS RHAMNOSUS GG 1 EACH CAP PO SCH (08:40)
--- NOTE | 2019-03-20 10:00 | NUR ---
DR POOLE AT BEDSIDE.
--- NOTE | 2019-03-20 10:15 | NUR ---
PER 'S REQUEST, OLAMIDE OLIVIER NOTIFIED THAT PATIENT DOES NOT WANT TO TRANSFER TO ANOTHER HOSPITAL, PROVIDED INSURANCE PHONE NUMBER FOR CM TO CALL.
--- NOTE | 2019-03-20 10:40 | NUR ---
PHYSICAL THERAPY HARRY AT BEDSIDE. PT STANDING AT SIDE OF BED
--- NOTE | 2019-03-20 11:15 | NUR ---
PER OLAMIDE OLIVIER, AND PT NOTIFIED THAT INSURANCE OLAMIDE RETANA DID NOT HAVE ANY CONTACT FROM FAMILY OR PT REGARDING STAYING AT [facility], PER MAZIN (INSURANCE CM), PT MUST TRANSFER TO A CONTRACTED FACILITY. STATES HE WILL TRY TO CALL THE INSURANCE AGAIN.
--- NOTE | 2019-03-20 11:40 | NUR ---
PT C/O NAUSEA AGAIN, ZOFRAN GIVEN PER PRN ORDER.
--- NOTE | 2019-03-20 11:43 | NUR ---
BASKET PERSON SOY AT BEDSIDE PER REQUEST OF PT AND TO TRY TO LET PATIENT STAY AT [facility] INSTEAD OF TRANSFERRING TO A CONTRACTED FACILITY.
--- NOTE | 2019-03-20 11:57 | NUR ---
4 UNITS INSULIN GIVEN FOR BS 204, PT SITTING UP GETTING READY FOR LUNCH
[2019-03-20] MEDS ORDERED: POTASSIUM PHOSPHATE 15 MM in NACL 0.9% 250 ML IV SCH (14:00)
--- NOTE | 2019-03-20 14:20 | NUR ---
PT SLEEPING QUIETLY IN NO ACUTE DISTRESS, RESP EVEN UNLABORED, VITALS STABLE ON MONITOR.
--- NOTE | 2019-03-20 17:15 | NUR ---
PT UP TO BEDSIDE COMMODE WITH MINIMAL ASSIST.
--- NOTE | 2019-03-20 18:00 | NUR ---
PT WITH DECREASED APPETITE, GRANADOS REMOVED,BALLOON DEFLATED, FULL 10ML WATER REMOVED, DC'D, PT DOV WELL, OUTPUT 1100ML. PT TRANSFERRED TO WHEELCHAIR, AWAITING TO GO TO [facility].
--- NOTE | 2019-03-20 18:15 | NUR ---
TO 119A IN WHEELCHAIR, REPORT GIVEN TO JAC SHORT. PT IN STABLE CONDITION, PT AMBULATED TO BATHROOM WITH SLOW STEADY GAIT.
--- NOTE | 2019-03-20 18:16 | NUR ---
ALL BELONGINGS TAKEN WITH PT TO ROOM 119A WITH
--- NOTE | 2019-03-20 18:20 | NUR ---
PT ARRIVED UNIT VIA WHEELCHAIR ACCOMPANIED BY FAMILY AND ICU NURSE. TRANSFERRED PT TO BED AND CONTINUE INFUSING PER MD ORDER. PT IS IN STABLE CONDITION. PT IS TALKING TO FAMILY BY BEDSIDE. NO SIGNS OF DISTRESS NOTED. SAFETY MEASURES IN PLACE.
--- NOTE | 2019-03-20 19:28 | NUR ---
ENDORSED PT AT BEDSIDE TO SUMO WRESTLER NURSE FOR CONTINUITY OF CARE. PT AWAKE AND LOOKING AT HER PHONE. NO SIGNS OF DISTRESS NOTED. PT IN STABLE CONDITION.
--- NOTE | 2019-03-20 19:30 | NUR ---
BEDSIDE REPORT RECEIVED FROM DAY RN, PT AWAKE ALERT OX4, RESP EVEN UNLABORED ON RA, LUNG SOUNDS CLEAR, VITALS STABLE, NSR ON MONITOR, SKIN INTACT, WARM TO TOUCH. MOVES ALL EXT, ABD SOFT NON DISTENDED, BS+ALL 4Q . RIJ CENTRAL LINE, IVF INFUSING PER ORDERS. ,POC REVIEWED, ALL SAFETY MEASURES IN PLACE, WILL CONTINUE TO MONITOR.
--- NOTE | 2019-03-20 20:11 | NUR ---
BG 238 ADMINISTERED INSULIN PER PROTOCOL. WEI MEDICATIONS GIVEN. PT TOLERATED WELL. ALL NEEDS MET AT THIS TIME. WILL CONTINUE TO MONITOR.
[2019-03-20 20:51] LABS: CARBON DIOXIDE 19.2 mmol/L (21-32); CREATININE 0.6 mg/dL (0.6-1.3); POTASSIUM 3.2 mmol/L (3.5-5.1)
--- NOTE | 2019-03-20 21:41 | NUR ---
ADMINISTERED PRN ZOFRAN FOR C/C NAUSEA. PT TOLERATED WELL. ALL NEEDS MET AT THIS TIME.
--- NOTE | 2019-03-20 22:00 | NUR ---
GAVE BEDSIDE REPORT TO ARUN SHORT. PT ENDORSED IN STABLE CONDITION.
--- NOTE | 2019-03-20 22:30 | NUR ---
PATIENT LYING IN BED, EYES OPEN. UPDATED ON TREATMENT AND NEW RN TO CARE FOR THE NIGHT. NO COMPLAINTS AT THIS TIME. RIJ CENTRAL LINE, INFUSING FLUIDS. BED IN LOWEST POSITION, SIDERAILS UPx2, CALL LIGHT WITHIN REACH, WILL CONTINUE TO MONITOR.
[2019-03-21] VITALS: BP 116/46
--- NOTE | 2019-03-21 01:25 | NUR ---
HUNG SECOND BAG OF POT. CHLORIDE. PATIENT REQUESTING TO USE THE RESTROOM. ASSISTED PATIENT TO RESTROOM WITH IV POLE CONNECTED TO IV. NO INCIDENTS NOTED. PATIENT HAD A LARGE BOWEL MOVEMENT, DENIES NAUSEA. BACK TO BED AND CALL LIGHT WITHIN REACH. DENIES PAIN.
--- NOTE | 2019-03-21 03:00 | NUR ---
PATIENT AMBULATED TO RESTROOM, VOMITED A SMALL AMOUNT OF EMESIS, BACK TO BED WITH EMESIS BAG AT BEDSIDE. WILL ADMINISTER NAUSEA MEDICATIONS.
[2019-03-21] MEDS: METOCLOPRAMIDE 10 MG/2 ML INJ VIAL IVP PRN (03:08)
[2019-03-21] MEDS: NACL 0.9% 1,000 ML IV SCH ×5 (03:12→23:17)
[2019-03-21 04:00] VITALS: BP 116/57
--- NOTE | 2019-03-21 05:10 | NUR ---
PATIENT AMBULATES TO RESTROOM WITHOUT INCIDENT, REPORTS A SMALL AMOUNT OF EMESIS. BACK TO BED AND SITTING UP. WILL ADMINISTER REGLAN ORDERED.
[2019-03-21] MEDS: BLOOD GLUCOSE MONITORING 1 DEV DEV FS SCH ×4 (05:55→20:38)
[2019-03-21 06:01] LABS: BASOPHILS % (AUTO) 0.6 % (0.0-2.0); EOSINOPHILS % (AUTO) 0.8 % (0.0-4.0); HEMATOCRIT 29.5 % (36-48); HEMOGLOBIN 9.7 g/dL (12.0-16.0); LYMPHOCYTES # (AUTO) 1.2 K/uL (2.5-16.5); LYMPHOCYTES % (AUTO) 20.5 % (20.5-51.1); MEAN CORPUSCULAR HEMOGLOBIN 27 pg (27-31); MEAN CORPUSCULAR HGB CONC 33 g/dL (33-37); MEAN CORPUSCULAR VOLUME 82.7 fL (80-94); MONOCYTES # (AUTO) 0.5 K/uL (0.8-1.0); MONOCYTES % (AUTO) 8.1 % (1.7-9.3); PLATELET COUNT (AUTO) 177 K/uL (140-450); RED BLOOD CELL COUNT(AUTO) 3.57 MIL/uL (4.20-5.40); RED CELL DISTRIBUTION WIDTH 16.1 % (11.6-13.7); WHITE BLOOD COUNT (AUTO) 5.7 K/uL (4.8-10.8)
[2019-03-21 06:14] LABS: MAGNESIUM 1.6 mg/dL (1.8-2.4); PHOSPHORUS 2.9 mg/dL (2.5-4.9)
[2019-03-21 06:19] LABS: ANION GAP 17.5 (8-16); CARBON DIOXIDE 20.1 mmol/L (21-32); CREATININE 0.5 mg/dL (0.6-1.3); POTASSIUM 3.6 mmol/L (3.5-5.1)
[2019-03-21] MEDS: INSULIN LISPRO SLIDING SCALE 100 UNITS/ML VIAL SUBQ PRN ×4 (06:41→20:43)
--- NOTE | 2019-03-21 06:45 | NUR ---
ACCUCHECK STILL HIGH 248, PER SLIDING SCALE, ADMINISTER 6 UNITS HUMALOG.. PATIENT UPDATED ON CAREPLAN, VERBALIZES UNDERSTANDING. DENIES PAIN AND NAUSEA AT THIS TIME.
[2019-03-21] MEDS: INSULIN LANTUS 100 UNITS/ML 10 ML VIAL SUBQ SCH ×2 (07:00→09:05)
[2019-03-21] MEDS ORDERED: INSULIN LANTUS 100 UNITS/ML 10 ML VIAL SUBQ SCH (07:00)
--- NOTE | 2019-03-21 07:25 | NUR ---
RECEIVED REPORT FROM BEAM DOFFER NURSE. PATIENT LYING DOWN IN BED SLEEPING, AROUSABLE BY VOICE. NO DISTRESS NOTED. DENIES ANY PAIN. AAOX4, CALM, COOPERATIVE, SKIN COLOR APPROPRIATE TO ETHNICITY, WARM TO TOUCH. SKIN INTACT. RIGHT IJ INTACT, AND INFUSING IVF PER MD ORDERS. RESPIRATION EVEN, UNLABORED, ON ROOM AIR. REVIEWED PLAN OF CARE WITH PATIENT. PATIENT VERBALIZED UNDERSTANDING. SAFETY MEASURES IN PLACE, CALL LIGHT WITHIN REACH. WILL CONTINUE TO MONITOR.
[2019-03-21 08:00] VITALS: BP 120/79
[2019-03-21] MEDS: MULTIVITAMIN 1 TAB PO SCH (09:07)
[2019-03-21] MEDS: DOCUSATE SODIUM 100 MG GELCAP PO SCH ×2 (09:07→20:38)
[2019-03-21] MEDS: FAMOTIDINE 20 MG TAB PO SCH (09:07)
[2019-03-21] MEDS: FOLIC ACID 1 MG TAB PO SCH (09:07)
[2019-03-21] MEDS: THIAMINE 100 MG TAB PO SCH (09:07)
[2019-03-21] MEDS: LACTOBACILLUS RHAMNOSUS GG 1 EACH CAP PO SCH (09:07)
--- NOTE | 2019-03-21 09:09 | NUR ---
PATIENT SITTING IN BED TALKING TO AT BEDSIDE. NO DISTRESS NOTED. SCHEDULED MEDICATIONS DUE GIVEN. WILL CONTINUE TO MONITOR.
[2019-03-21] MEDS ORDERED: MAG SULF 2000 MG/WATER PREMIX 50 ML IV SCH (11:00)
[2019-03-21 12:00] VITALS: BP 123/71
--- NOTE | 2019-03-21 12:36 | NUR ---
PATIENT SITTING IN BED WITH LUNCH TRAY. CONDITION UNCHANGED. SCHEDULED MEDICATIONS DUE GIVEN. WILL CONTINUE TO MONITOR.
--- NOTE | 2019-03-21 15:00 | NUR ---
PATIENT SITTING IN BED TALKING WITH FAMILY AT BEDSIDE. CONDITION UNCHANGED. WILL CONTINUE TO MONITOR.
[2019-03-21 16:00] VITALS: BP 116/74
--- NOTE | 2019-03-21 16:06 | NUR ---
03/21/19 RD FOLLOW UP COMPLETED PLEASE REFER TO NUTRITION ASSESSMENT UNDER CARE ACTIVITY FOR ESTIMATED NUTRITIONAL NEEDS. 1. CONTINUE CCHO 60GM DIET TOLERATED 2. RD PROVIDED DIABETES NUTRITION EDUCATION. PT AND ACCEPTED 3. RD TO FOLLOW-UP 3-5 DAYS, MODERATE RISK EFE TOTH RD
--- NOTE | 2019-03-21 17:30 | NUR ---
RIGHT IJ DRESSING CHANGED USING STERILE TECHNIQUE. PATIENT TOLERATED WELL. WILL CONTINUE TO MONITOR.
--- NOTE | 2019-03-21 19:24 | NUR ---
GAVE REPORT TO SCHEDULE MANAGER NURSE FOR CONTINUITY OF CARE. PATIENT IN STABLE CONDITION.
--- NOTE | 2019-03-21 19:25 | NUR ---
RECEIVED FROM AM RN IN BED AWAKE AND ALERT. ABLE TO VERBALIZE SIMPLE NEEDS IN [place]. CALL LIGHT WITH IN REACH AND DENIES PAIN AT THIS TIME. CARE PLANS FOR THE NIGHT DISCUSSED WITH HER. WITH A/O X 4. ROM X 4. CLEAR SPEECH. RIJ IN PLACE AND INTACT. NO BLEEDING NOTED . DRESSING JUST CHANGED BY AM RN TODAY. NO COMPLAINTS DONE.
[2019-03-21 20:00] VITALS: BP 120/70
--- NOTE | 2019-03-21 20:40 | NUR ---
BLOOD SUGAR CHECK PER FINGERSTICK 190. COVERED WITH INSULIN HUMALOG 3 UNITS. SPOUSE AT BEDSIDE. NO COMPLAINTS DONE. CALL LIGHT WITH IN REACH. ENCOURAGED TO CALL FOR ANY HELP SHE MAY NEED.
--- NOTE | 2019-03-21 23:20 | NUR ---
SLEEPING. NO COMPLAINTS DONE. CALL LIGHT WITH IN REACH.
[2019-03-22] VITALS: BP 129/85
--- NOTE | 2019-03-22 02:23 | NUR ---
AWAKE AND WALKING HALLWAY. DENIES PAIN. GOOD AFFECT. SMILING. ENCOURGED TO GO BACK IN BED AND SLEEP RT NIGHT TIME. "OK"
[2019-03-22 04:00] VITALS: BP 115/69
--- NOTE | 2019-03-22 04:15 | NUR ---
SLEEPING AT THIS TIME. NO RESTLESSNESS. TELEMETRY MONITORING. CALL LIGHT WITH IN REACH.
[2019-03-22] MEDS: BLOOD GLUCOSE MONITORING 1 DEV DEV FS SCH ×3 (06:27→16:41)
[2019-03-22] MEDS: INSULIN LISPRO SLIDING SCALE 100 UNITS/ML VIAL SUBQ PRN ×2 (06:28→16:42)
[2019-03-22] MEDS: NACL 0.9% 1,000 ML IV SCH (06:30)
--- NOTE | 2019-03-22 07:25 | NUR ---
ENDORSED TO AM RN FOR CONTINUITY OF CARE. AWAKE AND ALERT. ABLE TO VERBALIZE NEEDS WELL.
--- NOTE | 2019-03-22 07:26 | NUR ---
RECEIVED REPORT FROM YARD SWITCHER NURSE. PATIENT LYING DOWN IN BED SLEEPING, AROUSABLE BY VOICE. NO DISTRESS NOTED. DENIES ANY PAIN. AAOX4, CALM, COOPERATIVE, SKIN COLOR APPROPRIATE TO ETHNICITY, WARM TO TOUCH. SKIN INTACT. RIGHT IJ INTACT, AND INFUSING IVF PER MD ORDERS. RESPIRATION EVEN, UNLABORED, ON ROOM AIR. REVIEWED PLAN OF CARE WITH PATIENT. PATIENT VERBALIZED UNDERSTANDING. SAFETY MEASURES IN PLACE, CALL LIGHT WITHIN REACH. WILL CONTINUE TO MONITOR.
[2019-03-22 08:00] VITALS: BP 136/86
[2019-03-22 08:35] LABS: BASOPHILS % (AUTO) 0.8 % (0.0-2.0); EOSINOPHILS # (AUTO) 0.2 K/uL (0-0.4); EOSINOPHILS % (AUTO) 2.7 % (0.0-4.0); HEMATOCRIT 31.9 % (36-48); HEMOGLOBIN 10.4 g/dL (12.0-16.0); LYMPHOCYTES # (AUTO) 1.6 K/uL (2.5-16.5); LYMPHOCYTES % (AUTO) 26.6 % (20.5-51.1); MEAN CORPUSCULAR HEMOGLOBIN 27 pg (27-31); MEAN CORPUSCULAR HGB CONC 33 g/dL (33-37); MEAN CORPUSCULAR VOLUME 82.1 fL (80-94); MONOCYTES # (AUTO) 0.6 K/uL (0.8-1.0); MONOCYTES % (AUTO) 10.1 % (1.7-9.3); NEUTROPHILS # (AUTO) 3.6 K/uL (1.8-7.7); NEUTROPHILS % (AUTO) 59.8 % (42.2-75.2); PLATELET COUNT (AUTO) 212 K/uL (140-450); RED BLOOD CELL COUNT(AUTO) 3.89 MIL/uL (4.20-5.40); RED CELL DISTRIBUTION WIDTH 15.6 % (11.6-13.7); WHITE BLOOD COUNT (AUTO) 5.9 K/uL (4.8-10.8)
[2019-03-22 08:39] LABS: ANION GAP 12.1 (8-16); CARBON DIOXIDE 24.6 mmol/L (21-32); CREATININE 0.5 mg/dL (0.6-1.3)
[2019-03-22 08:42] LABS: POTASSIUM 2.7 mmol/L (3.5-5.1)
[2019-03-22] MEDS: DOCUSATE SODIUM 100 MG GELCAP PO SCH (08:44)
[2019-03-22] MEDS: LACTOBACILLUS RHAMNOSUS GG 1 EACH CAP PO SCH (08:44)
[2019-03-22] MEDS: FAMOTIDINE 20 MG TAB PO SCH (08:44)
[2019-03-22] MEDS: THIAMINE 100 MG TAB PO SCH (08:44)
[2019-03-22] MEDS: MULTIVITAMIN 1 TAB PO SCH (08:45)
[2019-03-22] MEDS: FOLIC ACID 1 MG TAB PO SCH (08:45)
[2019-03-22] MEDS: INSULIN LANTUS 100 UNITS/ML 10 ML VIAL SUBQ SCH (08:48)
--- NOTE | 2019-03-22 08:50 | NUR ---
PATIENT SITTING IN BED. NO DISTRESS NOTED. DENIES ANY PAIN. SCHEDULED MEDICATIONS DUE GIVEN. WILL CONTINUE TO MONITOR.
[2019-03-22] MEDS ORDERED: POTASSIUM CHLORIDE 10 MEQ TABER PO SCH (08:57)
[2019-03-22] MEDS ORDERED: MAG SULF 2000 MG/WATER PREMIX 50 ML IV SCH (09:00)
--- NOTE | 2019-03-22 10:39 | NUR ---
PATIENT SITTING DOWN IN BED. NO DISTRESS NOTED. SCHEDULED MEDICATIONS DUE GIVEN. WILL CONTINUE TO MONITOR.
[2019-03-22 12:00] VITALS: BP 138/84
[2019-03-22] MEDS ORDERED: POTASSIUM CHLORIDE 40 MEQ, LIDOCAINE MPF 1% 25 MG in NACL 0.9% 250 ML IV SCH (12:00)
[2019-03-22] MEDS ORDERED: INSU100S5 SUBQ (12:35)
--- NOTE | 2019-03-22 12:36 | NUR ---
PATIENT SITTING IN BED WITH LUNCH TRAY. NO DISTRESS NOTED. DENIES ANY PAIN. SCHEDULED MEDICATIONS DUE GIVEN. WILL CONTINUE TO MONITOR.
[2019-03-22] MEDS ORDERED: FOLI1TAB90 PO (12:40)
[2019-03-22] MEDS ORDERED: THIA-34 PO (12:40)
[2019-03-22] MEDS ORDERED: MULT-405 PO (12:40)
[2019-03-22] MEDS ORDERED: INSU100S22 SUBQ ×2 (14:19→17:13)
--- NOTE | 2019-03-22 15:00 | NUR ---
PATIENT SITTING DOWN IN BED. CONDITION UNCHANGED. FAMILY MEMBER AT BEDSIDE. WILL CONTINUE TO MONITOR.
[2019-03-22 16:00] VITALS: BP 125/81
[2019-03-22 17:07] LABS: ANION GAP 11.6 (8-16); CARBON DIOXIDE 23.9 mmol/L (21-32); CREATININE 0.4 mg/dL (0.6-1.3); POTASSIUM 3.5 mmol/L (3.5-5.1)
--- NOTE | 2019-03-22 18:42 | NUR ---
DISCHARGE INSTRUCTIONS PROVIDED TO PATIENT IN PREFERRED LANGUAGE OF CZECH. INSTRUCTIONS ON NEW/CHANGED MEDICATION REGIMEN AND SIDE EFFECTS, DIET REGIMEN, DIABETIC DIET AND CARE, AND FOLLOW-UP WITH [facility] AND PHARMACY BUYER FOR DM I. ANSWERED ALL OF PATIENT/FAMILY QUESTIONS REGARDING DISCHARGE. PATIENT/FAMILY VERBALIZED COMPLETE UNDERSTANDING. PATIENT TO GET DRESSED AND THEN READY TO BE DISCHARGED.
--- NOTE | 2019-03-22 18:50 | NUR ---
PATIENT ALL DRESSED. ESCORTED PATIENT DOWN TO LOBBY VIA STEADY AMBULATION. PATIENT DISCHARGED AT THIS TIME TO HOME IN PRIVATE VEHICLE IN STABLE CONDITION.
== END 2019-03-22 18:50 | disposition home or self-care (01) | DRG 420 ==
LOC: MED 15:49 → MIC 18:18 → MTU 03-20 18:15
PROVIDERS: ADMIT General Practice; ATTEND General Practice
PROC: 02HV33Z Insertion of Infusion Device into Superior Vena Cava, Percutaneous Approach (ICD-10-PCS; principal; 2019-03-17)
PROC: B548ZZA Ultrasonography of Superior Vena Cava, Guidance (ICD-10-PCS; 2019-03-17)
DX: E10.10 Type 1 diabetes mellitus with ketoacidosis without coma (principal); J96.01 Acute respiratory failure with hypoxia; K85.90 Acute pancreatitis without necrosis or infection, unspecified; N17.9 Acute kidney failure, unspecified; R65.10 Systemic inflammatory response syndrome (SIRS) of non-infectious origin without acute organ dysfunction; E83.39 Other disorders of phosphorus metabolism; E83.42 Hypomagnesemia; K74.60 Unspecified cirrhosis of liver; K80.20 Calculus of gallbladder without cholecystitis without obstruction; F10.10 Alcohol abuse, uncomplicated; Y90.9 Presence of alcohol in blood, level not specified; E87.6 Hypokalemia; K76.0 Fatty (change of) liver, not elsewhere classified; Z79.4 Long term (current) use of insulin; Z91.14 Patient's other noncompliance with medication regimen; Z71.41 Alcohol abuse counseling and surveillance of alcoholic
CPT/HCPCS: 36415; 36600; 71045; 76705; 80048; 80053; 80305; 81001; 81025; 82803; 82948; 83036; 83605; 83690; 83735; 83880; 84100; 84443; 84484; 85025; 85610; 85730; 87040; 87081; 87086; 87804; 96361; 96374; 96375; 97116; 97161-GP; 99285; C1758; J0696; J1642; J1815; J1885; J2001; J2060; J2405; J2765; J3475; J3480; J7030; J7042; J7060; Q0092

== ENCOUNTER 2020-10-12 15:59 | Emergency (ER) | payer MEDICAID ==
[~2020-10-12] VITALS: Ht 170.2 cm; Wt 107.0 kg
[~2020-10-12 15:59] MED LIST: FOLI1TAB90 PO; INSU100S22 SUBQ; INSU100S5 SUBQ; MULT-405 PO; THIA-34 PO
[2020-10-12 16:23] VITALS: BP 134/87
[2020-10-12 16:58] LABS: BASOPHILS # (AUTO) 0.1 K/uL (0.00-0.22); BASOPHILS % (AUTO) 1.2 % (0.0-2.0); EOSINOPHILS # (AUTO) 0.3 K/uL (0-0.4); EOSINOPHILS % (AUTO) 3.7 % (0.0-4.0); HEMATOCRIT 42.3 % (36-48); HEMOGLOBIN 14.3 g/dL (12.0-16.0); LYMPHOCYTES # (AUTO) 2.2 K/uL (2.5-16.5); LYMPHOCYTES % (AUTO) 29.9 % (20.5-51.1); MEAN CORPUSCULAR HEMOGLOBIN 31 pg (27-31); MEAN CORPUSCULAR HGB CONC 34 g/dL (33-37); MEAN CORPUSCULAR VOLUME 90.6 fL (80-94); MONOCYTES # (AUTO) 0.5 K/uL (0.8-1.0); MONOCYTES % (AUTO) 6.2 % (1.7-9.3); NEUTROPHILS # (AUTO) 4.4 K/uL (1.8-7.7); PLATELET COUNT (AUTO) 232 K/uL (140-450); RED BLOOD CELL COUNT(AUTO) 4.67 MIL/uL (4.20-5.40); RED CELL DISTRIBUTION WIDTH 13.4 % (11.6-13.7); WHITE BLOOD COUNT (AUTO) 7.4 K/uL (4.8-10.8)
[2020-10-12 17:12] LABS: ANION GAP 11.4 (8-16); CARBON DIOXIDE 26.4 mmol/L (21-32); CREATININE 0.6 mg/dL (0.6-1.3); POTASSIUM 3.8 mmol/L (3.5-5.1); TOTAL BILIRUBIN 0.7 mg/dL (0.0-1.0)
--- NOTE | 2020-10-12 17:13 | NUR ---
AMBULATED TO ER BED 1
--- NOTE | 2020-10-12 17:45 | NUR ---
SWABS FOR COVID MOSES, COVID PCR AND INFLUENZA OBTAINED, LABELED AND SENT. IV ACCESS OBTAINED IN RIGHT HAND #[id number].
[2020-10-12] MEDS ORDERED: ONDANSETRON 4 MG ODT PO ONE (18:00)
[2020-10-12] MEDS ORDERED: DEXT 5% /NACL 0.9% 1,000 ML IV ONE (18:00)
--- NOTE | 2020-10-12 18:42 | NUR ---
NAUSEA , VOMITING AND DIARRHEA X 2 DAYS, BODY ACHES, AFEBRILE. VACCINATED. CALLED PMD TODAY, REFERRED TO ED FOR EVAL AND TX. PATIENT IS AWAKE, ALERT,COOPERATIVE. RESP EVEN AND UNLABORED, SKIN IS WARM DRY AND INTACT. VSS. SITTING IN BED, LOW AND LOCKED.
--- NOTE | 2020-10-12 18:48 | NUR ---
UP TO BR TO PROVIDE URINE SPEC. AMB WITH UPRIGHT STEADY GAIT.
[2020-10-12] MEDS ORDERED: IBUP-2213 PO (19:35)
[2020-10-12] MEDS ORDERED: ONDA4TAB PO (19:35)
[2020-10-12] MEDS ORDERED: MIRABULK PO (19:35)
[2020-10-12 19:50] VITALS: BP 134/87
--- NOTE | 2020-10-12 19:50 | NUR ---
Patient discharged with v/s stable. Written and verbal after care instructions given and explained. Patient alert, oriented and verbalized understanding of instructions. Ambulatory with steady gait. All questions addressed prior to discharge. ID band removed. Patient advised to follow up with PMD. Rx of IBUPROFEN AND TESSALON PERLE given. Patient educated on indication of medication including possible reaction and side effects. Opportunity to ask questions provided and answered.
[2020-10-12 20:02] LABS: APPEARANCE,URINE SL CLOUDY (CLEAR); BILIRUBIN,URINE NEGATIVE (NEGATIVE); BLOOD, URINE 1+ (NEGATIVE); COLOR,URINE DARK YELLOW (YELLOW); LEUKOCYTE ESTERASE ,URINE NEGATIVE (NEGATIVE); NITRITE, URINE NEGATIVE (NEGATIVE); UGLUCOSE NEGATIVE (NEGATIVE)
[2020-10-12 20:25] LABS: RBC,URINE 0-5 /HPF (0-5)
--- NOTE | 2020-10-20 19:53 | NUR ---
LATE ENTRY- D5-0.9% NS IVF DISCONTINUED AT 1950
== END 2020-10-12 19:50 | disposition home or self-care (01) ==
LOC: MED 15:59
DX: B34.9 Viral infection, unspecified (principal); Z20.822 Contact with and (suspected) exposure to COVID-19; R11.2 Nausea with vomiting, unspecified; K59.00 Constipation, unspecified; E10.9 Type 1 diabetes mellitus without complications; Z79.4 Long term (current) use of insulin; Z79.899 Other long term (current) drug therapy
CPT/HCPCS: 36415; 71045; 80053; 81001; 81025; 83690; 85025; 87086; 87426; 87804; 96360; 99284; Q0162

== ENCOUNTER 2020-11-25 06:35 | Emergency (ER) | payer MEDICAID ==
[~2020-11-25] VITALS: Ht 170.2 cm; Wt 106.6 kg
[~2020-11-25 06:35] MED LIST changes: +IBUP-2213 PO; +MIRABULK PO; +ONDA4TAB PO
[2020-11-25 06:44] VITALS: BP 136/100
--- NOTE | 2020-11-25 06:44 | NUR ---
TO BED AMBULATORY
--- NOTE | 2020-11-25 07:18 | NUR ---
Dr. Pimentel is evaluating patient at bedside.
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
[2020-11-25] MEDS ORDERED: KETOROLAC 60 MG/2 ML VIAL IM ONE (07:25)
[2020-11-25] MEDS ORDERED: IBUP-2213 PO (07:43)
[2020-11-25 08:01] VITALS: BP 126/81
== END 2020-11-25 08:01 | disposition home or self-care (01) ==
LOC: MED 06:35
DX: R07.89 Other chest pain (principal); E11.9 Type 2 diabetes mellitus without complications; F12.90 Cannabis use, unspecified, uncomplicated; Z79.899 Other long term (current) drug therapy; Z98.890 Other specified postprocedural states
CPT/HCPCS: 93005; 96372; 99283; J1885

== ENCOUNTER 2021-06-28 15:31 | Emergency (ER) | payer MEDICAID ==
[~2021-06-28] VITALS: Ht 170.2 cm; Wt 122.5 kg
[2021-06-28 15:49] VITALS: BP 143/79
[2021-06-28] MEDS ORDERED: MORPHINE SULFATE 4 MG/ML SYR IVP ONE ×3 (16:20→19:35)
[2021-06-28] MEDS ORDERED: ONDANSETRON 4 MG/2 ML VIAL IVP ONE (16:20)
--- NOTE | 2021-06-28 16:36 | NUR ---
PT AMBULATED TO BED 10
--- NOTE | 2021-06-28 16:37 | NUR ---
LAB AT BEDSIDE
[2021-06-28 16:47] LABS: BASOPHILS # (AUTO) 0.1 K/uL (0.00-0.22); BASOPHILS % (AUTO) 1.1 % (0.0-2.0); EOSINOPHILS # (AUTO) 0.4 K/uL (0-0.4); EOSINOPHILS % (AUTO) 3.6 % (0.0-4.0); HEMATOCRIT 42.4 % (36-48); HEMOGLOBIN 14.2 g/dL (12.0-16.0); LYMPHOCYTES # (AUTO) 1.9 K/uL (2.5-16.5); LYMPHOCYTES % (AUTO) 19.2 % (20.5-51.1); MEAN CORPUSCULAR HEMOGLOBIN 30 pg (27-31); MEAN CORPUSCULAR HGB CONC 34 g/dL (33-37); MEAN CORPUSCULAR VOLUME 88.8 fL (80-94); MONOCYTES # (AUTO) 0.6 K/uL (0.8-1.0); MONOCYTES % (AUTO) 5.8 % (1.7-9.3); NEUTROPHILS # (AUTO) 7.1 K/uL (1.8-7.7); NEUTROPHILS % (AUTO) 70.3 % (42.2-75.2); PLATELET COUNT (AUTO) 299 K/uL (140-450); RED BLOOD CELL COUNT(AUTO) 4.77 MIL/uL (4.20-5.40); WHITE BLOOD COUNT (AUTO) 10.1 K/uL (4.8-10.8)
[2021-06-28 16:52] LABS: APPEARANCE,URINE CLEAR (CLEAR); BILIRUBIN,URINE NEGATIVE (NEGATIVE); BLOOD, URINE TRACE-I (NEGATIVE); COLOR,URINE YELLOW (YELLOW); LEUKOCYTE ESTERASE ,URINE NEGATIVE (NEGATIVE); NITRITE, URINE NEGATIVE (NEGATIVE); UGLUCOSE 3+ (NEGATIVE)
--- NOTE | 2021-06-28 16:54 | NUR ---
PT WHEELED TO CT SCAN
--- NOTE | 2021-06-28 16:56 | NUR ---
41 Y/O FEMALE BIB SELF, C/O ABDOMINAL PAIN 8/10 CRAMPING AND BURNING, STATES THAT IT FEELS LIKE "SOMETHINGS GONNA POP OUT". CONSTANT PAIN IN THE AREA, WITH NAUSEA, CHANGES IN APPETITE. CHEST PAIN, 5/10 PRESSURE, DENIES RADIATION. PMH:TYPE 1 DM NKA
--- NOTE | 2021-06-28 17:04 | NUR ---
RETURNED FROM CT
[2021-06-28 17:14] LABS: ALBUMIN 3.8 g/dL (3.4-5.0); ANION GAP 14.1 (8-16); CARBON DIOXIDE 26.4 mmol/L (21-32); CREATININE 0.8 mg/dL (0.6-1.3); POTASSIUM 3.5 mmol/L (3.5-5.1); TOTAL BILIRUBIN 0.6 mg/dL (0.0-1.0)
[2021-06-28 17:20] LABS: CALCIUM OXALATE CRYSTALS,UR None Seen /HPF (None Seen); HYALINE CASTS, URINE None Seen /LPF (None Seen); OTHER CRYSTALS,URINE None Seen /HPF (None Seen); RBC,URINE 0-5 /HPF (0-5); TRICHOMONAS,URINE None Seen /HPF (None Seen); TRIPLE PHOSPHATE CRYSTAL,UR None Seen /HPF (None Seen); URIC ACID CRYSTALS,URINE None Seen /HPF (None Seen); URINE AMORPHOUS URATE None Seen /HPF (None Seen); WBC,URINE 0-5 /HPF (0-5); YEAST,URINE None Seen /HPF (None Seen)
[2021-06-28 17:21] LABS: COARSE GRANULAR CASTS,URINE None Seen /LPF (None Seen); FINE GRANULAR CASTS,URINE None Seen /LPF (None Seen); OTHER CASTS, URINE None Seen /LPF (None Seen); RED BLOOD CELL CASTS,URINE None Seen /LPF (None Seen); WAXY CASTS,URINE None Seen /LPF (None Seen)
[2021-06-28] MEDS ORDERED: NACL 0.9% 1,000 ML IV ONE ×2 (17:35→19:40)
--- NOTE | 2021-06-28 17:55 | NUR ---
US tech at bedside
--- NOTE | 2021-06-28 18:17 | NUR ---
Pt reports moderate relief to pain; 2/10. Denies nausea. window installer remains in place. Respirations 15, even/unlabored. at bedside. All pt needs met.
--- NOTE | 2021-06-28 19:24 | NUR ---
Pt report given to DAGMAR SHORT. Transfer of care at this time.
[2021-06-28] MEDS ORDERED: NAPR-54 PO (19:39)
[2021-06-28] MEDS ORDERED: ACET-10509 PO (19:39)
[2021-06-28] MEDS ORDERED: BLOOD GLUCOSE MONITORING 1 DEV DEV FS ONE (19:40)
[2021-06-28 19:46] VITALS: BP 140/81
--- NOTE | 2021-06-28 20:44 | NUR ---
d/c with VSS. d/c education given. opportunity to ask questions given and answered. rx of tylenol and naprosyn given. IV site removed,bleeding controlled with sterile gauze and reinforced with tape.
== END 2021-06-28 20:43 | disposition home or self-care (01) ==
LOC: MED 15:31
DX: K80.70 Calculus of gallbladder and bile duct without cholecystitis without obstruction (principal); R74.01 Elevation of levels of liver transaminase levels; K76.0 Fatty (change of) liver, not elsewhere classified; E10.40 Type 1 diabetes mellitus with diabetic neuropathy, unspecified; Z98.890 Other specified postprocedural states; Z98.51 Tubal ligation status; Z79.1 Long term (current) use of non-steroidal anti-inflammatories (NSAID); Z79.899 Other long term (current) drug therapy
CPT/HCPCS: 36415; 74176; 76705; 80053; 81001; 83690; 85025; 96361; 96374; 96375; 96376; 99284; J2270; J2405; J7030; Q0092; 81025

== ENCOUNTER 2022-07-23 18:25 | Emergency (ER) | payer MEDICAID ==
[~2022-07-23] VITALS: Ht 170.2 cm; Wt 118.8 kg
[~2022-07-23 18:25] MED LIST changes: +ACET-10509 PO; +NAPR-54 PO
[2022-07-23 18:31] VITALS: BP 120/69
--- NOTE | 2022-07-23 20:15 | NUR ---
Pt went to bed 2
--- NOTE | 2022-07-23 20:20 | NUR ---
at the bedside. Pt dorina pain
[2022-07-23] MEDS ORDERED: VANCOMYCIN 1,000 MG in DEXTROSE 5% 250 ML IV ONE (20:30)
--- NOTE | 2022-07-23 20:31 | NUR ---
PT TO BED 2
[2022-07-23] MEDS ORDERED: VANCOMYCIN 1,000 MG VIAL ONE (20:52)
[2022-07-23] MEDS ORDERED: CEPH-588 PO ×2 (23:10→23:20)
[2022-07-23] MEDS ORDERED: SULF-58 PO (23:10)
[2022-07-23] MEDS ORDERED: SULF-59 PO (23:20)
[2022-07-23 23:30] VITALS: BP 120/69
--- NOTE | 2022-07-23 23:30 | NUR ---
D/C BY PRESCRIBED BACTRIM AND KEFLEX
== END 2022-07-23 23:30 | disposition home or self-care (01) ==
LOC: MED 18:25
DX: L03.311 Cellulitis of abdominal wall (principal); Z79.899 Other long term (current) drug therapy; Z98.890 Other specified postprocedural states
CPT/HCPCS: 36415; 87040; 96365; 96366; 99284; J3370